=== PATIENT | female | born 2000 | race Caucasian/White ===

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

== ENCOUNTER 2020-07-16 13:17 | Emergency (ER) | payer OTHER ==
[~2020-07-16] VITALS: Ht 170.2 cm; Wt 54.0 kg
[~2020-07-16 13:17] MED LIST: SERT25TA PO; VERA120T8 PO
[2020-07-16 13:26] VITALS: BP 128/79
[2020-07-16 13:57] LABS: BASOPHILS % (AUTO) 1 % (0-1); EOSINOPHILS % (AUTO) 2 % (1-7); LYMPHOCYTES % (AUTO) 29 % (22-44); MEAN CORPUSCULAR HEMOGLOBIN 29.2 pg (27.0-34.8); MEAN CORPUSCULAR HGB CONC 33.7 g/dL (32.4-35.8); MEAN PLATELET VOLUME 6.7 fL (7.4-10.4); MONOCYTES % (AUTO) 5 % (2-9); NEUTROPHILS % (AUTO) 64 % (42-75); PLATELET COUNT 276 x10^3/uL (130-400); RED BLOOD COUNT 4.61 x10^6/uL (3.82-5.3)
[2020-07-16] MEDS ORDERED: SODIUM CHLORIDE FLUSH 10ML SYR IVF ONE (14:00)
[2020-07-16] MEDS ORDERED: SODIUM CHLORIDE 0.9% 1,000ML IVBOLUS ONE (14:00)
[2020-07-16 14:06] LABS: MD NO
[2020-07-16 14:10] LABS: ALANINE AMINOTRANSFERASE 23 U/L (12-78); ALBUMIN 3.5 g/dL (3.4-5.0); ANION GAP 5 mmol/L (5-15); CALCIUM 8.2 mg/dL (8.5-10.1); CHLORIDE 107 mmol/L (98-107); CREATININE 0.57 mg/dL (0.55-1.02)
[2020-07-16 14:14] LABS: ALKALINE PHOSPHATASE 136 U/L (45-117); BILIRUBIN,TOTAL 0.2 mg/dL (0.2-1.0); TOTAL PROTEIN 6.8 g/dL (6.4-8.2)
[2020-07-16 14:27] LABS: SALICYLATE LEVEL < 1.7 mg/dL (2.8-20.0)
== END 2020-07-16 15:25 | disposition home or self-care (01) ==
LOC: ED 13:22
DX: R55 Syncope and collapse (principal); R56.9 Unspecified convulsions
CPT/HCPCS: 36415; 70450; 71045; 80053; 80299; 80320; 84703; 85025; 93005; 96360; 99285; J7030; 80329; G0480